=== PATIENT | female | born 1965 | race Caucasian/White ===

== ENCOUNTER 2022-12-08 13:00 | Outpatient (CLI) | payer BC | END 2022-12-08 13:01 | disposition home or self-care (01) | LOC: DTY/OP 13:00 | PROVIDERS: ATTEND Surgery | DX: E66.01 Morbid (severe) obesity due to excess calories (principal) | CPT/HCPCS: 97802 ==

== ENCOUNTER 2023-01-18 07:53 | Outpatient (CLI) | payer BC ==
[2023-01-18 10:19] LABS: #Basophils 0.2 10x3/uL (0.0-0.2); #Eosinphils 0.6 10x3/uL (0.0-0.5); #Monocytes 1.1 10x3/uL (0.0-1.1); #Neutrophils 5.2 10x3/uL (1.5-8.4); %Basophils 1.3 % (0.0-2.0); %Lymphocytes 43.8 % (18.0-47.0); %Monocytes 8.3 % (0.0-10.0); %Neutrophils 41.3 % (40.0-75.0); Hematocrit 46.3 % (34.9-44.5); Hemoglobin 15.7 g/dL (12.0-15.5); Mean Corpuscular HGB CONC 33.9 g/dL (32.0-36.0); Mean Corpuscular Hemoglobin 33.3 pg (27.0-33.0); Mean Corpuscular Volume 98.3 fl (81.6-98.3); Mean Platelet Volume 11.6 fl (7.4-10.4); Platelet Count 366 10x3/uL (150-450); RBC Distribution Width 13.4 % (11.5-14.5); Red Blood Cell (RBC) Count 4.71 10x6/uL (3.90-5.03); White Blood Cell (WBC) Count 12.7 10x3/uL (3.5-10.5)
[2023-01-18 11:22] LABS: ALT (SGPT) 34 U/L (8-55); AST (SGOT) 70 U/L (5-34); Albumin 3.6 g/dL (3.5-5.0); Alkaline Phosphatase 209 U/L (40-110); Anion Gap 14 mmol/L (10-20); BUN (Urea Nitrogen) 19 mg/dL (9.8-20.1); Bilirubin, Direct 0.5 mg/dL (0.1-0.3); Bilirubin, Total 1.2 mg/dL (0.2-1.2); Calc. Creatinine Clearance 0 mL/min (70-130); Carbon Dioxide 28 mmol/L (22-29); Chloride 99 mmol/L (98-107); Estimated GFR 79; Globulin 4.3 g/dL (2.4-3.5); Glucose 112 mg/dL (70-105); Potassium 4.3 mmol/L (3.5-5.1); Protein, Total 7.9 g/dL (6.0-8.3); Sodium 137 mmol/L (136-145)
== END 2023-01-18 07:54 | disposition home or self-care (01) ==
LOC: LABBT 07:53
PROVIDERS: ATTEND Surgery
DX: Z01.818 Encounter for other preprocedural examination (principal); E66.01 Morbid (severe) obesity due to excess calories
CPT/HCPCS: 71046; 80053; 80076; 85025

== ENCOUNTER 2023-01-18 08:00 | Inpatient (IN) | payer BC ==
[2023-01-18 08:58] VITALS: BMI 51.0
[2023-01-31] MEDS ORDERED: EPINEPHrine 1 MG/ML VIAL ONE (06:44)
[2023-01-31] MEDS ORDERED: Bupivacaine 0.25% HCL 30 ML VIAL ONE (06:44)
[2023-01-31] MEDS ORDERED: fentaNYL PF 100 MCG/2 ML SYRINGE ONE (06:58)
[2023-01-31] MEDS ORDERED: Rocuronium Bromide 10 MG/ML (10ML VIAL) ONE ×2 (06:59→08:01)
[2023-01-31] MEDS ORDERED: Ketamine In 0.9 % NaCl 50 MG/5 ML SYRINGE ONE (06:59)
[2023-01-31] MEDS ORDERED: Lidocaine 1% PF 5 ML VIAL ONE ×2 (06:59→08:01)
[2023-01-31] MEDS ORDERED: PROPOFOL 20 ML ONE (06:59)
[2023-01-31] MEDS ORDERED: Scopolamine 1 mg/72 hour Patch ONE (07:01)
[2023-01-31] MEDS ORDERED: CEFAZOLIN 2 GM VIAL ONE (07:01)
[2023-01-31] MEDS ORDERED: Sodium Chloride 0.9% 100 ML ONE (07:02)
[2023-01-31] MEDS ORDERED: Propofol 500 MG/50 ML VIAL ONE (07:05)
[2023-01-31] MEDS ORDERED: Glycopyrrolate 0.2 MG/ML 5 ML SYRINGE ONE ×2 (08:01→08:47)
[2023-01-31] MEDS ORDERED: Dexamethasone 20 MG/5 ML VIAL ONE ×2 (08:01→08:10)
[2023-01-31] MEDS ORDERED: ePHEDrine Sulfate 50 MG/10 ML VIAL ONE ×3 (08:01→08:56)
[2023-01-31] MEDS ORDERED: PROPOFOL 200 MG/20 ML VIAL ONE (08:01)
[2023-01-31] MEDS ORDERED: Ondansetron PF 4 MG/2 ML Vial ONE ×2 (08:01→08:28)
[2023-01-31] MEDS ORDERED: SUGAMMADEX SODIUM 200 MG/2 ML VIAL ONE (08:29)
[2023-01-31] MEDS ORDERED: Bacitracin Zinc Ointment 30 gm TUBE ONE (08:33)
[2023-01-31] MEDS ORDERED: fentaNYL 50 mcg/mL 1 mL Vial ONE ×2 (09:12→09:26)
== END 2023-01-31 11:02 | disposition home or self-care (01) | DRG 989 ==
LOC: SURG A 01-31 06:16
PROVIDERS: ADMIT Surgery; ATTEND Surgery
PROC: 0WJG4ZZ Inspection of Peritoneal Cavity, Percutaneous Endoscopic Approach (ICD-10-PCS; principal; 2023-01-31)
PROC: 3E033XZ Introduction of Vasopressor into Peripheral Vein, Percutaneous Approach (ICD-10-PCS; 2023-01-31)
DX: E66.01 Morbid (severe) obesity due to excess calories (principal); K66.0 Peritoneal adhesions (postprocedural) (postinfection); R16.0 Hepatomegaly, not elsewhere classified; K74.60 Unspecified cirrhosis of liver; Z79.899 Other long term (current) drug therapy; Z79.890 Hormone replacement therapy; Z88.2 Allergy status to sulfonamides; Z88.8 Allergy status to other drugs, medicaments and biological substances; Z90.49 Acquired absence of other specified parts of digestive tract; Z68.43 Body mass index [BMI] 50.0-59.9, adult
CPT/HCPCS: 36416; 86850; 86900; 86901; J0171; J1100; J2405; J2704; J3010; J3490; S0020

== ENCOUNTER 2024-04-03 00:30 | Inpatient (IN) | payer BC ==
[2024-04-03 01:43] LABS: #Basophils 0.13 10x3/uL (0.0-0.2); %Basophils 1.1 % (0.0-1.0); %Eosinophils 1.1 % (0.0-10.0); %Lymphocytes 35.3 % (21.0-51.0); %Monocytes 13.4 % (0.0-10.0); %Neutrophils 48.9 % (42.0-75.0); Hemoglobin 16.7 g/dL (12.0-16.0); Mean Corpuscular HGB CONC 36.3 g/dL (32.0-36.0); Mean Corpuscular Hemoglobin 34.2 pg (27.0-31.0); Mean Corpuscular Volume 94.1 fL (78.0-98.0); Platelet Count 228 10x3/uL (130-400); Red Blood Cell (RBC) Count 4.89 mill/uL (4.20-5.40)
[2024-04-03 01:58] LABS: INR-International Normal Ratio 1.3; PTT 31.9 sec (22.9-36.1); Prothrombin Time 16.4 sec (12.0-14.7)
[2024-04-03 01:59] LABS: Acetaminophen Less than 10 mcg/mL (Less than 10); Alcohol Less than 10.0 mg/dL (Less than 10); Salicylate Less than 8.0 mg/dL (Less than 8.0)
[2024-04-03 02:00] LABS: ALT (SGPT) 39 U/L (Less than 34); AST (SGOT) 103 U/L (11-34); Albumin 3.4 g/dL (3.1-4.5); Alkaline Phosphatase 234 U/L (40-110); Anion Gap 22 mmol/L (10-20); BUN (Urea Nitrogen) 37 mg/dL (9.8-20.1); Bilirubin, Total 2.7 mg/dL (0.3-1.2); Calc. Creatinine Clearance 0 mL/min (70-130); Calcium 10.4 mg/dL (7.8-10.44); Carbon Dioxide 23 mmol/L (22-29); Chloride 91 mmol/L (98-107); Estimated GFR 25; Glucose 225 mg/dL (70-105); Potassium 5.7 mmol/L (3.5-5.1); Protein, Total 8.4 g/dL (6.0-8.3); Sodium 130 mmol/L (136-145)
[2024-04-03 02:03] LABS: Troponin I 0.013 ng/mL (< 0.028)
[2024-04-03] MEDS ORDERED: CALCIUM GLUC 1 GM/NS 50 ML IV Bag ONE (02:50)
[2024-04-03] MEDS ORDERED: Lactulose 20 GM (30 mL) UDCUP ONE (02:51)
[2024-04-03] MEDS ORDERED: Insulin Regular, Human 100 UNIT/ML 10 ML VIAL ONE (02:51)
[2024-04-03] MEDS ORDERED: Dextrose 10% in Water 250 ML ONE (02:56)
[2024-04-03] MEDS ORDERED: Acetaminophen 325 MG TAB PO PRN (03:24)
[2024-04-03] MEDS ORDERED: Acetaminophen 650 MG Suppository PR PRN (03:24)
[2024-04-03] MEDS ORDERED: Glucagon 1 MG/ML KIT IM PRN (04:01)
[2024-04-03] MEDS ORDERED: Dextrose 50% Abboject 50 ML SYRINGE SLOW IVP PRN (04:01)
[2024-04-03] MEDS ORDERED: Dextrose 5% in Water 1,000 ML IV PRN (04:01)
[2024-04-03 05:18] VITALS: BMI 51.2
[2024-04-03] MEDS ORDERED: Sodium Bicarb 50 MEQ/50 ML Abboject 8.4% SYRINGE ONE (05:20)
[2024-04-03] MEDS: Sodium Bicarb 50 MEQ/50 ML Abboject 8.4% SYRINGE IVP SCH (05:25)
[2024-04-03 05:27] LABS: Bacteria/HPF None Seen HPF (None Seen); Bilirubin Negative (Negative); Blood, Urine Negative (Negative); CAUTI Indications for Culture Alt mental st,lethar; Clarity Clear (Clear); Glucose, Urine (Dipstick) Greater than 1000 mg/dL (Negative); Ketone, Urine Negative (Negative); Leukocyte 250 Leu/uL (Negative); Nitrite Negative (Negative); Protein, Urine (Dipstick) Negative (Neg-Trace); RBC/HPF 0-3 HPF (0-3); Specific Gravity, Urine 1.008 (1.002-1.036); Squamous Epithelial 0-3 HPF (0-3); pH, Urine 6.5 (5.0-9.0)
[2024-04-03 05:32] LABS: Urine Culture Reflex Yes Yes
[2024-04-03 05:35] LABS: Amphetamine Not Detected (NotDetected); Barbiturates Screen Not Detected (NotDetected); Benzodiazepine Screen Not Detected (NotDetected); Cocaine Metabolite Screen Not Detected (NotDetected); Methadone Not Detected (NotDetected); Methamphetamine Not Detected (NotDetected); Opiate Screen Detected (NotDetected); Oxycodone Screen Not Detected (NotDetected); Phencyclidine (PCP) Not Detected (NotDetected); THC/Cannabinoid Screen Not Detected (NotDetected); Tricyclic Screen Not Detected (NotDetected)
[2024-04-03] MEDS ORDERED: Ondansetron PF 4 MG/2 ML Vial ONE (08:03)
[2024-04-03] MEDS ORDERED: Famotidine/PF 20 mg/2ml Vial ONE (08:03)
[2024-04-03] MEDS: Ondansetron ODT 4 MG TAB PO PRN (08:10)
[2024-04-03] MEDS: Famotidine 20 MG TAB PO SCH (08:20)
[2024-04-03] MEDS: Famotidine/PF 20 mg/2ml Vial SLOW IVP SCH (08:20)
[2024-04-03] MEDS: Lactulose 20 GM (30 mL) UDCUP PO SCH (08:22)
[2024-04-03] MEDS ORDERED: Clindamycin/D5W 600 mg/50 ml Premix Bag ONE (10:23)
[2024-04-03] MEDS: Clindamycin/D5W 600 MG in Premix 1 BAG IVPB SCH (10:30)
[2024-04-03] MEDS: Lactulose 20 GM (30 mL) UDCUP PER TUBE SCH (15:34)
[2024-04-03] MEDS: Insulin Lispro 100 UNIT/ML 10 ML VIAL SC PRN ×2 (17:15→21:41)
[2024-04-03] MEDS: Furosemide 40 MG TAB PO SCH (21:42)
[2024-04-03] MEDS: Flecainide 50 MG TAB PO SCH (21:42)
[2024-04-03] MEDS: Rifaximin 200 MG TAB PER TUBE SCH (21:43)
[2024-04-04] MEDS: Labetalol HCl 100 MG/20 ML VIAL SLOW IVP PRN (01:58)
[2024-04-04] MEDS: Ondansetron PF 4 MG/2 ML Vial IVP PRN (02:19)
[2024-04-04 04:16] LABS: #Basophils 0.04 10x3/uL (0.0-0.2); #Eosinophils Less than 0.03 10x3/uL (0.0-0.7); %Basophils 0.2 % (0.0-1.0); %Lymphocytes 13.5 % (21.0-51.0); %Monocytes 10.2 % (0.0-10.0); %Neutrophils 75.8 % (42.0-75.0); Hematocrit 42.8 % (36.0-47.0); Hemoglobin 15.3 g/dL (12.0-16.0); Mean Corpuscular HGB CONC 35.7 g/dL (32.0-36.0); Mean Corpuscular Hemoglobin 33.5 pg (27.0-31.0); Mean Corpuscular Volume 93.7 fL (78.0-98.0); Platelet Count 258 10x3/uL (130-400); RBC Distribution Width 14.9 % (11.5-14.5); Red Blood Cell (RBC) Count 4.57 mill/uL (4.20-5.40)
[2024-04-04 04:35] LABS: ALT (SGPT) 31 U/L (Less than 34); AST (SGOT) 102 U/L (11-34); Alkaline Phosphatase 208 U/L (40-110); Anion Gap 23 mmol/L (10-20); BUN (Urea Nitrogen) 40 mg/dL (9.8-20.1); Bilirubin, Total 4.2 mg/dL (0.3-1.2); Calc. Creatinine Clearance 64 mL/min (70-130); Calcium 10.5 mg/dL (7.8-10.44); Carbon Dioxide 21 mmol/L (22-29); Chloride 97 mmol/L (98-107); Estimated GFR 21; Globulin 4.8 g/dL (2.4-3.5); Glucose 335 mg/dL (70-105); Potassium 4.5 mmol/L (3.5-5.1); Protein, Total 7.8 g/dL (6.0-8.3); Sodium 136 mmol/L (136-145)
[2024-04-04] MEDS: Insulin Lispro 100 UNIT/ML 10 ML VIAL SC PRN (04:46)
[2024-04-04] MEDS: Thyroid 30 MG TAB PO SCH (05:33)
[2024-04-04] MEDS ORDERED: Insulin NPH Human Isophane 100 UNITS/ML (10 ML VIAL) SC SCH (09:00)
[2024-04-04] MEDS: Ciprofloxacin Lactate/D5W 400 MG in Premix 1 BAG IVPB SCH (09:56)
[2024-04-04] MEDS: Insulin NPH Human Isophane 100 UNITS/ML (10 ML VIAL) SC SCH (09:56)
[2024-04-04] MEDS: Sodium Chloride 0.9% 1,000 ML IV SCH (09:58)
[2024-04-04] MEDS: Rifaximin 550 MG TAB PER TUBE SCH ×2 (11:13→21:18)
[2024-04-05 04:32] LABS: #Basophils 0.04 10x3/uL (0.0-0.2); #Eosinophils Less than 0.03 10x3/uL (0.0-0.7); %Basophils 0.2 % (0.0-1.0); %Lymphocytes 13.9 % (21.0-51.0); %Monocytes 14.9 % (0.0-10.0); %Neutrophils 70.4 % (42.0-75.0); Hematocrit 45.3 % (36.0-47.0); Hemoglobin 15.5 g/dL (12.0-16.0); Mean Corpuscular HGB CONC 34.2 g/dL (32.0-36.0); Mean Corpuscular Hemoglobin 33.3 pg (27.0-31.0); Mean Corpuscular Volume 97.4 fL (78.0-98.0); Mean Platelet Volume 10.6 fL (7.4-10.4); Platelet Count 242 10x3/uL (130-400); RBC Distribution Width 15.6 % (11.5-14.5); Red Blood Cell (RBC) Count 4.65 mill/uL (4.20-5.40)
[2024-04-05 11:43] LABS: Albumin 2.8 g/dL (3.1-4.5); Calcium 10.1 mg/dL (7.8-10.44); Chloride 102 mmol/L (98-107); Potassium 4.7 mmol/L (3.5-5.1); Sodium 141 mmol/L (136-145)
[2024-04-05 11:44] LABS: Globulin 4.7 g/dL (2.4-3.5); Glucose 314 mg/dL (70-105); Protein, Total 7.5 g/dL (6.0-8.3)
[2024-04-05 11:45] LABS: Anion Gap 24 mmol/L (10-20); Carbon Dioxide 20 mmol/L (22-29)
[2024-04-05 11:47] LABS: Alkaline Phosphatase 206 U/L (40-110); Bilirubin, Total 3.7 mg/dL (0.3-1.2)
[2024-04-05 11:48] LABS: BUN (Urea Nitrogen) 56 mg/dL (9.8-20.1); Calc. Creatinine Clearance 50 mL/min (70-130); Estimated GFR 17
[2024-04-05 11:50] LABS: ALT (SGPT) 39 U/L (Less than 34); AST (SGOT) 111 U/L (11-34)
[2024-04-05] MEDS: Sodium Chloride 0.9% 1,000 ML IV SCH (13:01)
[2024-04-05 18:22] LABS: Albumin 2.9 g/dL (3.1-4.5); Anion Gap 20 mmol/L (10-20); BUN (Urea Nitrogen) 60 mg/dL (9.8-20.1); BUN/Creatinine Ratio 19.48; CK (CPK) 312 U/L (29-168); Calc. Creatinine Clearance 50 mL/min (70-130); Calcium 10.2 mg/dL (7.8-10.44); Carbon Dioxide 23 mmol/L (22-29); Chloride 101 mmol/L (98-107); Estimated GFR 17; Glucose 293 mg/dL (70-105); Potassium 4.1 mmol/L (3.5-5.1); Sodium 140 mmol/L (136-145)
[2024-04-05] MEDS: Amlodipine 5 MG TAB PO SCH (19:25)
[2024-04-05] MEDS: Albumin 25% 25 GM (100 mL) BOT IVPB SCH (19:26)
[2024-04-05] MEDS: Insulin NPH Human Isophane 100 UNITS/ML (10 ML VIAL) SC SCH (21:22)
[2024-04-06 04:51] LABS: #Basophils 0.06 10x3/uL (0.0-0.2); %Basophils 0.3 % (0.0-1.0); %Eosinophils 0.2 % (0.0-10.0); %Monocytes 15.2 % (0.0-10.0); %Neutrophils 61.7 % (42.0-75.0); Hematocrit 38.2 % (36.0-47.0); Hemoglobin 13.2 g/dL (12.0-16.0); Mean Corpuscular HGB CONC 34.6 g/dL (32.0-36.0); Mean Corpuscular Hemoglobin 33.8 pg (27.0-31.0); Mean Corpuscular Volume 97.9 fL (78.0-98.0); Mean Platelet Volume 10.5 fL (7.4-10.4); Platelet Count 233 10x3/uL (130-400); RBC Distribution Width 15.3 % (11.5-14.5)
[2024-04-06 05:26] LABS: ALT (SGPT) 46 U/L (Less than 34); AST (SGOT) 135 U/L (11-34); Albumin 3.3 g/dL (3.1-4.5); Alkaline Phosphatase 210 U/L (40-110); Anion Gap 20 mmol/L (10-20); BUN (Urea Nitrogen) 63 mg/dL (9.8-20.1); Bilirubin, Total 4.4 mg/dL (0.3-1.2); Calc. Creatinine Clearance 58 mL/min (70-130); Calcium 9.7 mg/dL (7.8-10.44); Carbon Dioxide 23 mmol/L (22-29); Chloride 101 mmol/L (98-107); Estimated GFR 21; Globulin 3.9 g/dL (2.4-3.5); Glucose 319 mg/dL (70-105); Potassium 3.6 mmol/L (3.5-5.1); Protein, Total 7.2 g/dL (6.0-8.3); Sodium 140 mmol/L (136-145)
[2024-04-06 07:27] LABS: Creatinine, Urine 71.67 mg/dL (15.00-278.00)
[2024-04-06 07:28] LABS: Protein, Urine Random Quant Less than 10 mg/dL (1-14); Sodium, Urine 20 mmol/L (Not Available); Urea Nitrogen, Random Urine 628 mg/dl
[2024-04-06] MEDS ORDERED: Furosemide 40 MG TAB PO SCH (09:00)
[2024-04-06] MEDS: Amlodipine 10 MG TAB PO SCH (09:09)
[2024-04-06] MEDS: Famotidine 20 MG TAB PO SCH (09:10)
[2024-04-06] MEDS: Famotidine/PF 20 mg/2ml Vial SLOW IVP SCH (09:11)
[2024-04-06] MEDS: Enoxaparin 40 MG (0.4 mL) SYRINGE SC SCH (11:50)
[2024-04-06 13:06] VITALS: BMI 47.9
[2024-04-06 13:43] LABS: Magnesium 2.2 mg/dL (1.6-2.6)
[2024-04-06] MEDS ORDERED: Enoxaparin 40 MG (0.4 mL) SYRINGE SC SCH (21:00)
[2024-04-06] MEDS: traMADol HCl 50 MG TAB PO PRN (21:49)
[2024-04-06] MEDS: Cyclobenzaprine 10 MG TAB PO SCH (23:54)
[2024-04-07 04:47] LABS: Hematocrit 38.6 % (36.0-47.0); Hemoglobin 13.5 g/dL (12.0-16.0); Mean Corpuscular Hemoglobin 33.8 pg (27.0-31.0); Mean Corpuscular Volume 96.5 fL (78.0-98.0); Mean Platelet Volume 10.5 fL (7.4-10.4); Platelet Count 222 10x3/uL (130-400); RBC Distribution Width 15.3 % (11.5-14.5)
[2024-04-07 05:06] LABS: ALT (SGPT) 61 U/L (Less than 34); AST (SGOT) 171 U/L (11-34); Albumin 2.9 g/dL (3.1-4.5); Alkaline Phosphatase 219 U/L (40-110); Anion Gap 16 mmol/L (10-20); BUN (Urea Nitrogen) 49 mg/dL (9.8-20.1); Bilirubin, Total 3.6 mg/dL (0.3-1.2); Calc. Creatinine Clearance 86 mL/min (70-130); Calcium 9.4 mg/dL (7.8-10.44); Carbon Dioxide 23 mmol/L (22-29); Chloride 101 mmol/L (98-107); Estimated GFR 31; Globulin 3.7 g/dL (2.4-3.5); Glucose 250 mg/dL (70-105); Potassium 3.8 mmol/L (3.5-5.1); Protein, Total 6.6 g/dL (6.0-8.3); Sodium 136 mmol/L (136-145)
[2024-04-07 05:39] LABS: Band 2 % (5-11); Eosinophils 5 % (0-10); Lymphocytes 27 % (21-51); Monocytes 6 % (0-10); Neutrophil 60 % (42-75); Platelet Adequacy Comment Platelets Normal; Target Cells SLIGHT = 2-5 cells HPF (0-1)
[2024-04-07] MEDS: Rifaximin 550 MG TAB PO SCH (11:06)
[2024-04-07] MEDS: Acetaminophen/Codeine 30-300mg Tablet PO PRN (14:42)
[2024-04-07] MEDS: tiZANidine HCl 4 MG TAB PO SCH (20:35)
[2024-04-08 06:17] LABS: Hematocrit 37.9 % (36.0-47.0); Hemoglobin 13.2 g/dL (12.0-16.0); Mean Corpuscular HGB CONC 34.8 g/dL (32.0-36.0); Mean Corpuscular Volume 97.7 fL (78.0-98.0); Mean Platelet Volume 10.5 fL (7.4-10.4); Platelet Count 200 10x3/uL (130-400); RBC Distribution Width 15.6 % (11.5-14.5); Red Blood Cell (RBC) Count 3.88 mill/uL (4.20-5.40)
[2024-04-08 06:37] LABS: ALT (SGPT) 60 U/L (Less than 34); AST (SGOT) 154 U/L (11-34); Albumin 2.7 g/dL (3.1-4.5); Alkaline Phosphatase 229 U/L (40-110); Anion Gap 13 mmol/L (10-20); BUN (Urea Nitrogen) 36 mg/dL (9.8-20.1); Bilirubin, Total 3.6 mg/dL (0.3-1.2); Calc. Creatinine Clearance 112 mL/min (70-130); Calcium 9.3 mg/dL (7.8-10.44); Carbon Dioxide 28 mmol/L (22-29); Chloride 99 mmol/L (98-107); Estimated GFR 41; Globulin 3.7 g/dL (2.4-3.5); Glucose 172 mg/dL (70-105); Potassium 3.9 mmol/L (3.5-5.1); Protein, Total 6.4 g/dL (6.0-8.3); Sodium 136 mmol/L (136-145)
[2024-04-08 06:53] LABS: Anisocytosis MODERATE=16-30 cells HPF (0-5); Eosinophils 7 % (0-10); Howell Jolly Bodies SLIGHT = 1-2 cells HPF (None Seen); Lymphocytes 31 % (21-51); Macrocytosis MARKED = >30 cells HPF (0-5); Monocytes 9 % (0-10); Neutrophil 51 % (42-75); Nucleated RBC (Manual Ct) 2 % (0); Platelet Adequacy Comment Platelets Normal; Polychromasia MODERATE = 3-4 cells HPF (0-2); Smudge Cells 21.6 %
[2024-04-08] MEDS: Ezetimibe 10 MG TAB PO SCH (08:34)
[2024-04-08] MEDS: Ciprofloxacin 500 MG TAB PO SCH ×2 (08:35→21:11)
[2024-04-08] MEDS: Albumin 25% 25 GM (100 mL) BOT IVPB SCH (11:38)
[2024-04-08] MEDS: Lactulose 20 GM (30 mL) UDCUP PER TUBE SCH (21:11)
[2024-04-09 06:45] LABS: Hematocrit 34.7 % (36.0-47.0); Hemoglobin 12.1 g/dL (12.0-16.0); Mean Corpuscular HGB CONC 34.9 g/dL (32.0-36.0); Mean Corpuscular Hemoglobin 34.1 pg (27.0-31.0); Mean Corpuscular Volume 97.7 fL (78.0-98.0); Mean Platelet Volume 10.4 fL (7.4-10.4); Platelet Count 169 10x3/uL (130-400); RBC Distribution Width 15.9 % (11.5-14.5); Red Blood Cell (RBC) Count 3.55 mill/uL (4.20-5.40)
[2024-04-09 07:02] LABS: ALT (SGPT) 47 U/L (Less than 34); AST (SGOT) 126 U/L (11-34); Albumin 3.2 g/dL (3.1-4.5); Alkaline Phosphatase 197 U/L (40-110); Anion Gap 13 mmol/L (10-20); BUN (Urea Nitrogen) 32 mg/dL (9.8-20.1); Bilirubin, Total 3.4 mg/dL (0.3-1.2); Calc. Creatinine Clearance 123 mL/min (70-130); Calcium 9.3 mg/dL (7.8-10.44); Carbon Dioxide 26 mmol/L (22-29); Chloride 101 mmol/L (98-107); Estimated GFR 46; Globulin 3.1 g/dL (2.4-3.5); Glucose 191 mg/dL (70-105); Potassium 3.6 mmol/L (3.5-5.1); Protein, Total 6.3 g/dL (6.0-8.3); Sodium 136 mmol/L (136-145)
[2024-04-09 07:15] LABS: Anisocytosis SLIGHT = 6-15 cells HPF (0-5); Burr Cells SLIGHT = 2-5 cells HPF (0-1); Eosinophils 9 % (0-10); Lymphocytes 33 % (21-51); Macrocytosis SLIGHT = 6-15 cells HPF (0-5); Monocytes 12 % (0-10); Neutrophil 47 % (42-75); Nucleated RBC (Manual Ct) 1 % (0); Platelet Adequacy Comment Platelets Normal; Polychromasia SLIGHT = 2-3 cells HPF (0-2); Smudge Cells 23.8 %; Target Cells SLIGHT = 2-5 cells HPF (0-1); Toxic Granulation SLIGHT; Vacuoles SLIGHT
[2024-04-09] MEDS: Famotidine 20 MG TAB PO SCH (20:54)
[2024-04-09] MEDS: Famotidine/PF 20 mg/2ml Vial SLOW IVP SCH (21:13)
[2024-04-10 07:34] LABS: ALT (SGPT) 47 U/L (Less than 34); AST (SGOT) 114 U/L (11-34); Albumin 3.1 g/dL (3.1-4.5); Alkaline Phosphatase 226 U/L (40-110); Anion Gap 12 mmol/L (10-20); BUN (Urea Nitrogen) 24 mg/dL (9.8-20.1); Bilirubin, Total 3.4 mg/dL (0.3-1.2); Calc. Creatinine Clearance 148 mL/min (70-130); Calcium 9.7 mg/dL (7.8-10.44); Carbon Dioxide 28 mmol/L (22-29); Chloride 100 mmol/L (98-107); Estimated GFR 57; Globulin 3.1 g/dL (2.4-3.5); Glucose 152 mg/dL (70-105); Potassium 3.7 mmol/L (3.5-5.1); Protein, Total 6.2 g/dL (6.0-8.3); Sodium 136 mmol/L (136-145)
[2024-04-10] MEDS: Spironolactone 25 MG TAB PO SCH (09:16)
[2024-04-10] MEDS: Empagliflozin 10 MG TAB PO SCH (09:16)
[2024-04-10 12:51] VITALS: BP 107/55; TEMP 98.4
== END 2024-04-10 12:52 | disposition home health service (06) | DRG 442 ==
LOC: ERS 00:30 → ERHOLD 03:23 → CCU 03:27 → MSONC 04-06 15:33
PROVIDERS: ADMIT Student in an Organized Health Care Education/Training Program; ATTEND Hospitalist
PROC: 30233J1 Transfusion of Nonautologous Serum Albumin into Peripheral Vein, Percutaneous Approach (ICD-10-PCS; principal; 2024-04-05)
DX: K76.82 Hepatic encephalopathy (principal); E72.20 Disorder of urea cycle metabolism, unspecified; E87.21 Acute metabolic acidosis; Z68.43 Body mass index [BMI] 50.0-59.9, adult; N39.0 Urinary tract infection, site not specified; N17.9 Acute kidney failure, unspecified; K75.81 Nonalcoholic steatohepatitis (NASH); I11.0 Hypertensive heart disease with heart failure; I50.9 Heart failure, unspecified; E03.9 Hypothyroidism, unspecified; Z66 Do not resuscitate; E78.5 Hyperlipidemia, unspecified; E66.01 Morbid (severe) obesity due to excess calories; E87.5 Hyperkalemia; K74.60 Unspecified cirrhosis of liver; E11.65 Type 2 diabetes mellitus with hyperglycemia; I48.91 Unspecified atrial fibrillation; F32.A Depression, unspecified; Z88.0 Allergy status to penicillin; Z88.8 Allergy status to other drugs, medicaments and biological substances; Z90.49 Acquired absence of other specified parts of digestive tract; Z90.89 Acquired absence of other organs; Z98.890 Other specified postprocedural states; Z87.891 Personal history of nicotine dependence; B96.20 Unspecified Escherichia coli [E. coli] as the cause of diseases classified elsewhere
CPT/HCPCS: 36415; 36416; 70450; 71045; 74018; 80053; 80306; 80307; 81001; 82140; 82550; 82570; 83036; 83735; 83880; 83970; 84156; 84300; 84484; 84540; 85025; 85610; 85730; 87077; 87086; 87186; 93005; 93306; 96374; 96375; J0613; J0744; J1650; J1815; J2405; J3490; J7030; P9047; Q0162

== ENCOUNTER 2024-09-27 09:15 | Emergency (ER) | payer BC ==
[2024-09-27 09:43] LABS: #Basophils 0.12 10x3/uL (0.0-0.2); #Eosinophils 0.59 10x3/uL (0.0-0.7); #Monocytes 1.15 10x3/uL (0.11-0.59); #Neutrophils 4.20 10x3/uL (1.40-6.50); %Basophils 1.1 % (0.0-1.0); %Eosinophils 5.3 % (0.0-10.0); %Lymphocytes 44.8 % (21.0-51.0); %Monocytes 10.4 % (0.0-10.0); %Neutrophils 38.1 % (42.0-75.0); Hematocrit 30.2 % (36.0-47.0); Hemoglobin 11.1 g/dL (12.0-16.0); Mean Corpuscular Hemoglobin 34.3 pg (27.0-31.0); Mean Corpuscular Volume 93.2 fL (78.0-98.0); Platelet Count 262 10x3/uL (130-400); Red Blood Cell (RBC) Count 3.24 mill/uL (4.20-5.40); White Blood Cell (WBC) Count 11.03 10x3/uL (4.8-10.8)
[2024-09-27] MEDS ORDERED: Ondansetron PF 4 MG/2 ML Vial ONE (09:51)
[2024-09-27 09:56] LABS: INR-International Normal Ratio 1.7; PTT 38.1 sec (22.9-36.1); Prothrombin Time 19.9 sec (12.0-14.7)
[2024-09-27 10:04] LABS: Anion Gap 14 mmol/L (10-20); BUN (Urea Nitrogen) 16 mg/dL (9.8-20.1); Calc. Creatinine Clearance 0 mL/min (70-130); Carbon Dioxide 26 mmol/L (22-29); Chloride 96 mmol/L (98-107); Potassium 4.4 mmol/L (3.5-5.1); Sodium 132 mmol/L (136-145)
[2024-09-27 10:05] LABS: ALT (SGPT) 28 U/L (Less than 34); AST (SGOT) 107 U/L (11-34); Albumin 2.1 g/dL (3.1-4.5); Alkaline Phosphatase 220 U/L (40-110); Bilirubin, Total 3.4 mg/dL (0.3-1.2); Calcium 9.1 mg/dL (7.8-10.44); Globulin 4.4 g/dL (2.4-3.5); Glucose 171 mg/dL (70-105); Lipase 13 U/L (8-78)
[2024-09-27 10:41] LABS: Troponin I Less than 0.010 ng/mL (< 0.028)
== END 2024-09-27 13:25 | disposition home or self-care (01) ==
LOC: ERS 09:15
DX: K92.0 Hematemesis (principal); K72.10 Chronic hepatic failure without coma; R04.0 Epistaxis; J18.9 Pneumonia, unspecified organism; I11.0 Hypertensive heart disease with heart failure; I50.9 Heart failure, unspecified; E11.9 Type 2 diabetes mellitus without complications; Z87.891 Personal history of nicotine dependence
CPT/HCPCS: 36415; 71045; 71046; 80053; 83690; 84484; 85025; 85610; 85730; 86850; 86900; 86901; 93005; 96374; J2405